=== PATIENT | female | born 1995 | race Caucasian/White ===

== ENCOUNTER 2020-03-28 13:06 | Emergency (ER) | payer SELFPAY ==
[2020-03-28 13:18] VITALS: BP 126/83; PULSE 78; RESP 16; TEMP 36.9; O2SAT 99
--- NOTE | 2020-03-28 18:27 | ED.GENADUL_ITS ---
Discharge Plan Disposition Patient Disposition: HOME Condition: Stable Discharge Details Chief Complaint: Nausea/Vomit/Diar Clinical Impression: Nausea, vomiting, and diarrhea Primary Care Provider: Britany Lozada ED Provider: Miguelina Pruett Home Meds and New Rx's Prescriptions: Continued ferrous sulfate 325 MG tablet 325 mg PO QD Qty: 30 RF: 3 acetaminophen [Tylenol] 325 MG tablet 650 mg PO Q4H PRN PRNRF: 0 ibuprofen 600 MG tablet 600 mg PO Q6H PRN PRNRF: 0 Nexplanon 68 MG implant 68 mg SQ DIRECTED RF: 0 Discharge Instructions Additional Instructions: Drink plenty of fluids. Rest activities as tolerated. Follow-up with women's wellness as discussed for reevaluation of your control. For any persistence or return of symptoms not associated with the first few days of your menstrual cycle Please have reevaluation sooner if needed for any change, worsening or alarming symptoms. Stand Alone Forms: Work Release Referrals: [facility] [Provider Group] Discharge Data Discharge Date/Time-TO BE ENTERED AT DEPARTURE: 03/28/20 14:11 Medical Decision Making This is a pleasant 24-year-old patient in no apparent distress presenting to the emergency room asymptomatic after describing nausea vomiting and diarrhea which occurred yesterday, through the night and resolved at approximately 10:00 this morning. Patient does report a pattern similar to this which is been noted over the last year on her first 1 to 2 days of her menstrual cycle. Patient is currently on the Nexplanon implant. Patient reports that she will have months in which she does not menstruate however she does report when having heavy periods this constellation of nausea vomiting and diarrhea. Patient reports is very typical of the pattern she has noted over the last year. Patient does intend to speak with women's wellness about this but has not thus far spoken with them. Patient has missed work for this reason when work falls on the day of her first few days of her menstrual cycle. Patient was due to work this morning at [employer] but did not feel well enough and still had some mild symptoms this morning and was up all night with nausea and vomiting as well as diarrhea. Patient reports she feels significantly better at this time. Denies any weakness or fatigue. Does not feel as if she is dehydrated, has been urinating without difficulty. Patient reports vaginal bleeding currently is heavy however this is typical again of her pattern. Patient does take iron replacement supplements daily which she is compliant with. We did discuss the need for testing which she consents to today. I recommended a CBC her history of anemia however patient would prefer to defer this to her PCP or women's wellness as she does not feel she is weak or fatigued at this time. Patient has no clinical evidence of anemia at this time based on physical exam and vital signs. Denies any chest pain, shortness of breath, increase in respiratory effort or fatigue. Patient's vital signs are reviewed and are stable. Patient is simply requesting a return to work note today so she may work tomorrow. testing is negative We discussed need for woman's wellness evaluation. Patient provided a referral to women's wellness and was placed on the follow-up list for women's wellness for her complaints. Patient agrees with plan to follow-up with women's wellness. The patient was stable and requested discharge. Prior to discharge, my usual and customary return precautions were reviewed with the patient - this included follow-up instructions and reasons to return to the Emergency Department if conditions worsens, does not improve as expected, or other new concerns arise. HPI General Date/Time Provider Initiated Documentation: 03/28/20 13:11 . HPI Narrative: This is a 24-year-old patient presenting the emergency room complaining of nausea vomiting and diarrhea which began last night. Patient reports symptoms entirely resolved at approximately 10:00 this morning. She has had no persistent nausea vomiting or diarrhea. Patient denies any abdominal pain. Denies back pain. Denies fever, chills, chest pain, difficulty breathing shortness of breath or wheezing. Patient denies any abdominal distention. Aquiles rodríguez reports bowel movements have improved. Patient denies any dysuria, urgency or frequency. Patient does report she is currently menstruating. Patient does describe this as a pattern of nausea vomiting and diarrhea which she has noted over the last year which occurs on her first day of menstruation. Patient reports lasting sometimes 1 to 2 days typically worse at night. Patient reports she is currently on the Nexplanon implant and reports this was placed 2 years ago but does report in the last year she when menstruating will have onset of nausea vomiting and diarrhea for the first 1 to 2 days of her menstrual cycle. This is very typical of the pattern she has noticed over the last year and does intend to speak with women's wellness about this but has not yet had this conversation or been evaluated. Patient reports her bleeding is heavy in the first few days then improves. Patient does report a history of anemia but does report she currently takes iron supplementation daily and has been compliant with this. Patient denies any shortness of breath, weakness or fatigue. Reports she is otherwise feeling well. Reports at this time she is asymptomatic and requires a note to return to work as she had to call out of work this morning as she had several episodes of vomiting and diarrhea overnight. Patient is simply requesting a work note to return to work as her employer is concerned about Covid. Related Data Home Medications Medication Instructions Recorded Confirmed ferrous sulfate 325 mg PO QD #30 tab-cap 12/23/17 03/28/20 Nexplanon 68 mg SQ DIRECTED implant 03/19/18 03/28/20 acetaminophen [Tylenol] 650 mg PO Q4H PRN PRN tab 03/19/18 03/28/20 ibuprofen 600 mg PO Q6H PRN PRN tab 03/19/18 03/28/20 Previous Rx's Medication Instructions Recorded ferrous sulfate 325 mg PO QD #30 tab-cap 12/23/17 Nexplanon 68 mg SQ DIRECTED implant 03/19/18 acetaminophen [Tylenol] 650 mg PO Q4H PRN PRN tab 03/19/18 ibuprofen 600 mg PO Q6H PRN PRN tab 03/19/18 Allergies Allergy/AdvReac Type Severity Reaction Status Date / Time hydrocodone [From Vicodin] AdvReac Mild Nausea Unverified 03/28/20 13:24 bee stings Allergy Anaphylaxsi Uncoded 03/28/20 13:24 s General Stated Complaint: Nausea/Vomit/Diar MARU: 3 Review of Systems All systems reviewed & are unremarkable except as noted in HPI and below PFSH Medical History Back pain (normal spontaneous vaginal delivery) (Acute) Family History Grandfather Alcohol abuse Myocardial infarction Grandfather Alcohol abuse Father Essential hypertension Grandfather No problems noted. Maternal Uncle No problems noted. Maternal Uncle Myocardial infarction Social History Smoking/Tobacco Use Status: Current every day Alcohol Intake: never Drug use: Daily Substance use type: marijuana Adopted: No Foster care: No Number of Children: 2 Do you feel safe at home: Yes Do you feel safe in your relationship?: Yes History History 2 Para Hx # Term Pregnancies 2 Multiple births Hx # Pregnancies Ectopic pregnancies AB induced Hx Number of Living Children AB spontaneous Exam Narrative Exam Narrative: CONST: Healthy appearing patient, in no acute distress. Well hydrated. Alert and oriented. HENMT: Head nomocephalic, normal to inspection. Atraumatic. Hearing grossly normal. EYES: General normal appearance. Alignment normal. Eyelids normal. Conjunctiva normal. Sclera normal. NECK: Normal visual inspection. FROM. No lymphadenopathy. Trachea midline. No Midline tenderness. CHEST: Normal insepection of the chest. RESP: Normal respiratory effort. Speaking full sentences. No cough. No wheezing. No retractions. Clear to auscaltation. Breath sound equal and present bilaterally. CARDIO: No JVD. Normal PMI. Regular Rate. Regular Rhythm. Normal peripheral pulses. GI: Normal inspection of abdomen. No distension. Soft. Nontender. Bowel sounds present in all 4 quadrants. No rebound. No gaurding. MUSCULOSKELETAL: Normal Gait. FROM of all extremities. Distal neurovascularly intact. Sensation intact distally. Back: CVA tenderness noted bilaterally SKIN: Normal. Dry. No rashes. NEURO: Alert and awake. Speech clear. PSYCH: Normal affect. Cooperative. Course Vital Signs Vital signs: Vital Signs Temperature 36.9 C 03/28/20 13:18 Pulse 78 03/28/20 13:18 Respiratory Rate 16 03/28/20 13:18 Blood Pressure 126/83 03/28/20 13:18 Pulse Oximetry 99 03/28/20 13:18 Temperature 36.9 C 03/28/20 13:18 Temperature Source Temporal Artery Scan 03/28/20 13:18 Pulse 78 03/28/20 13:18 Respiratory Rate 16 03/28/20 13:18 Respiratory Effort Non-Labored 03/28/20 13:22 Blood Pressure 126/83 03/28/20 13:18 Blood Pressure Position Sitting 03/28/20 13:18 Pulse Oximetry 99 03/28/20 13:18 Oxygen Delivery Method Room Air 03/28/20 13:18 Oxygen Flow Rate 0 03/28/20 13:18 Pain Level 1 03/28/20 13:18 Lab/Test Results Lab/Test Results: POC- Test(urine) Negative
== END 2020-03-28 14:11 | disposition home or self-care (01) ==
PROVIDERS: Emergency Provider Physician Assistant; PCP Nurse Practitioner Family
DX: R11.2 Nausea with vomiting, unspecified (principal); R19.7 Diarrhea, unspecified; Z02.79 Encounter for issue of other medical certificate
CPT/HCPCS: 81025; 99282; 99283

== ENCOUNTER 2020-07-23 21:52 | Emergency (ER) | payer SELFPAY ==
--- NOTE | 2020-07-23 22:00 | DI.RAD_ITS ---
EXAM: XR ANKLE RT COMPLETE CLINICAL HISTORY: R/O fracture. TECHNIQUE: 2D digital imaging was performed. COMPARISON: CR RIGHT ANKLE COMPLETE from 10/05/2016 FINDINGS: BONES: No acute fracture is present. No bony destructive lesion is seen. Screws are again noted in th e malleoli. There is are smoothly marginated bony densities beneath the medial malleolus. There is periarticular spurring. JOINTS:The ankle mortise is normally aligned. SOFT TISSUE: Normal. IMPRESSION: Postsurgical and degenerative changes. No acute abnormality. DATA REPOSITORY: RADIATION DOSE DELIVERED:
[2020-07-23 22:01] VITALS: BP 124/63; PULSE 100; RESP 18; TEMP 37; O2SAT 100
--- NOTE | 2020-07-23 22:09 | W.ED.GENAD ---
Discharge Plan Disposition Patient Disposition: HOME Condition: Stable Discharge Details Clinical Impression: Right ankle sprain Primary Care Provider: None,None ED Provider: Clarisa Gross Home Meds and New Rx's Prescriptions: No Action Nexplanon 68 MG implant 68 mg SQ DIRECTED RF: 0 Discharge Instructions Instructions: Ankle Sprain (ED) Additional Instructions: Follow up with primary care provider in 3-5 days. Return to ED sooner if any worsening or concerns. Increase oral fluids. Please take Tylenol or Ibuprofen with food every 4-6 hours as needed for pain and swelling. Toe-touch weightbearing advance as tolerated. Rest ice compression elevation. Stand Alone Forms: Work Release Medical Decision Making 24-year-old female presents to the ED with a chief complaint of right ankle pain. Approximately 1 hour prior to arrival patient fell down approximately 3 steps. She landed on her right ankle and has been unable to bear weight since. She does report previous surgery on the ankle and has pins and screws in the ankle. She does have tenderness over the lateral and medial malleolus. No obvious deformity. Intact dorsal pedal pulses. Cap refills less than 2 seconds. She did not take any medications prior to arrival. She has no other injuries noted denies any loss of consciousness, hitting her head no neck or back pain. Imaging protocol: XR Right ankle. Views: 3 or more views. COMPARISON: CR RIGHT ANKLE COMPLETE 10/05/2016 9:13 AM FINDINGS: Bones/joints: Stable screws in the distal tibia and fibula. No acute fractures. Soft tissues: Normal. IMPRESSION: No acute finding. Thank you for allowing us to participate in the care of your patient. Dictated and Authenticated by: Albert Jim MD 07/23/2020 10:40 PM Eastern Time ([place] & [place]) Patient placed in a air stirrup splint and given crutches. Discussed toe-touch weightbearing and advance as tolerated, verbalizes understanding. Patient was given ibuprofen 800 mg in department. Discussed rest, ice, compression, elevation. HPI General Mode of arrival: wheelchair. Date/Time Provider Initiated Documentation: 07/23/20 21:54. Limitations to Documentation: no limitations. Information obtained by: patient. HPI Narrative: 24-year-old female presents to the ED with a chief complaint of right ankle pain. Approximately 1 hour prior to arrival patient fell down approximately 3 steps. She landed on her right ankle and has been unable to bear weight since. She does report previous surgery on the ankle and has pins and screws in the ankle. She does have tenderness over the lateral and medial malleolus. No obvious deformity. Intact dorsal pedal pulses. Cap refills less than 2 seconds. She did not take any medications prior to arrival. She has no other injuries noted denies any loss of consciousness, hitting her head no neck or back pain. Related Data Home Medications Medication Instructions Recorded Confirmed Nexplanon 68 mg SQ DIRECTED implant 03/19/18 07/23/20 Previous Rx's Medication Instructions Recorded Nexplanon 68 mg SQ DIRECTED implant 03/19/18 Allergies Allergy/AdvReac Type Severity Reaction Status Date / Time hydrocodone [From Vicodin] AdvReac Mild Nausea Unverified 07/23/20 22:05 bee stings Allergy Anaphylaxsi Uncoded 07/23/20 22:05 s General Stated Complaint: Orthopedic MARU: 3 Review of Systems Narrative: Constitutional: Negative for weight loss, alert and oriented, well groomed, normal body habitus, appears comfortable. HEENT: Denies trauma, headaches, blurry vision, nasal discharge, sore throat, trouble swallowing. Chest: Denies chest pain, palpitations, irregular rhythm, hypertension. Respiratory: Denies Shortness of breath, cough, hemoptysis. GI: Denies abdominal pain, nausea, vomiting, diarrhea, constipation. : Denies dysuria, hematuria, flank pain, rectal bleeding. Musculoskeletal: Right ankle pain and swelling. Neuro: Denies dizziness, blurry vision, weakness, syncope, headache or facial numbness. Hematologic: Denies easy bruising, intolerance to heat or cold, hair loss. [facility] Medical History (Updated 07/23/20 @ 22:55 by Clarisa Gross) Back pain (normal spontaneous vaginal delivery) Family History Grandfather Alcohol abuse Myocardial infarction Grandfather Alcohol abuse Father Essential hypertension Grandfather No problems noted. Maternal Uncle No problems noted. Maternal Uncle Myocardial infarction Social History Smoking/Tobacco Use Status: Current every day Alcohol Intake: never Drug use: Daily Substance use type: marijuana Adopted: No Foster care: No Number of Children: 2 Do you feel safe at home: Yes Do you feel safe in your relationship?: Yes History History 2 Para Hx # Term Pregnancies 2 Multiple births Hx # Pregnancies Ectopic pregnancies AB induced Hx Number of Living Children AB spontaneous Exam Narrative Exam Narrative: Constitutional: Alert and oriented x3. Appears stated age. Normal body habitus. Head: Normocephalic, no trauma. Eyes: Pupils PERRLA, Red reflex noted, EOM's intact. Eyelids symmetrical without lesions, discharge, or swelling. ENT: Bilateral TM's WNL, External ear normal to inspection, no mastoid TTP, swelling, or erythema, Nasal turbinates WNL, no nasal discharge. Normal dentition, Posterior pharynx WNL, no exudate. Chest: RRR, Normal S1, S2, distal pulses intact. Resp: Lungs clear to auscultation bilaterally, no wheezes, rales, or rhonchi. Musculoskeletal: Right ankle tenderness. Tenderness noted to the lateral and medial malleolus. Dorsal pedal pulses intact capillary refill less than 2 seconds. Skin: No suspicious rashes or lesions. Capillary refill less than 2 sec. Neurologic: Cranial nerves II-XII intact. Alert and oriented x 3. DTR's intact. Hematologic/Lymphatic: No ecchymosis, no lymphadenopathy. Course Vital Signs Vital signs: Vital Signs Temperature 37.0 C 07/23/20 22:01 Pulse 100 H 07/23/20 22:01 Respiratory Rate 18 07/23/20 22:01 Blood Pressure 124/63 07/23/20 22:01 Pulse Oximetry 100 07/23/20 22:01 Temperature 37.0 C 07/23/20 22:01 Temperature Source Tympanic 07/23/20 22:01 Pulse 100 H 07/23/20 22:01 Respiratory Rate 18 07/23/20 22:01 Blood Pressure 124/63 07/23/20 22:01 Blood Pressure Position Sitting 07/23/20 22:01 Pulse Oximetry 100 07/23/20 22:01 Oxygen Delivery Method Room Air 07/23/20 22:01 Oxygen Flow Rate 0 07/23/20 22: Pain Level 1 07/23/20 22: Comment 07/23/20 22:01
[2020-07-23] MEDS: Ibuprofen 800 MG TAB PO (22:12)
--- NOTE | 2020-07-23 22:40 | DI.VRAD_ITS ---
PROCEDURE INFORMATION: Exam: XR Right Ankle Exam date and time: 07/23/2020 10:28 PM Age: 24 years old Clinical indication: Pain; Ankle; Right; Prior surgery; Surgery date: 6+ months TECHNIQUE: Imaging protocol: XR Right ankle. Views: 3 or more views. COMPARISON: CR RIGHT ANKLE COMPLETE 10/05/2016 9:13 AM FINDINGS: Bones/joints: Stable screws in the distal tibia and fibula. No acute fractures. Soft tissues: Normal. IMPRESSION: No acute finding. Dictated and Authenticated by: Albert Jim MD. Ordering:JACKIE Mckenna MD
== END 2020-07-23 23:30 | disposition home or self-care (01) ==
PROVIDERS: Emergency Provider Registered Nurse Emergency
DX: S93.491A Sprain of other ligament of right ankle, initial encounter (principal); W10.8XXA Fall (on) (from) other stairs and steps, initial encounter; X50.9XXA Other and unspecified overexertion or strenuous movements or postures, initial encounter
CPT/HCPCS: 29515; 99283; 73610; E0114

== ENCOUNTER 2021-12-22 10:31 | Emergency (ER) | payer MEDICAID, SELFPAY ==
[2021-12-22 10:35] VITALS: BP 158/81; PULSE 114; RESP 14; TEMP 36.7; O2SAT 98
--- NOTE | 2021-12-22 10:45 | DI.CT_ITS ---
Exam(s) CT LUMBAR SPINE WO EXAM: CT LUMBAR SPINE WO CLINICAL HISTORY: fall 5 days ago, tender lower lumbar midline TECHNIQUE: COMPARISON: No exams were available for comparison FINDINGS: CT examination lumbar spine was performed utilizing multi slice acquisition and multiplanar reconstru ction. Visualized portions of kidneys and aorta appear intact. No adenopathy identified. There is no evidence of fracture. No spondylolysis or spondylolisthesis. The SI joints appear intact. No gr oss disc herniation by CT criteria. IMPRESSION: No evidence of acute injury. RADIATION DOSE DELIVERED: 697.9mGy.cm Total DLP !Error CTDIvol RADIATION OPTIMIZATION: All CT scans at this facility use at least one of these dose optimization te chniques: automated exposure control; mA and/or kV adjustment per patient size (includes targeted exa ms where dose is matched to clinical indication); or iterative reconstruction.
--- NOTE | 2021-12-22 10:55 | ED.GENADUL_ITS ---
Discharge Plan Disposition Patient Disposition: HOME Condition: Improving Discharge Details Clinical Impression: Back strain Primary Care Provider: Fabby Edward ED Provider: Carroll Velasco Home Meds and New Rx's Prescriptions: New lidocaine [Lidoderm] 5 % adhesive patch,medicated 1 patch topical DAILY PRN (Reason: back pain) Qty: 3 0RF Rx Instructions: leave on most painful area for up to 12 hrs cyclobenzaprine 5 mg tablet 5 mg PO BID PRN (Reason: muscle spasm) Qty: 6 0RF Continued melatonin 10 mg capsule 10 mg PO HS PRN0RF norethindrone (contraceptive) [Ortho Micronor] 0.35 mg tablet 0.35 mg PO DAILY Qty: 84 4RF Discharge Instructions Instructions: Low Back Strain (ED) Additional Instructions: Continue with ibuprofen and acetaminophen as needed for pain and inflammation, ice and/or heat as needed. Please return to the emergency department if you develop any neurologic symptomatology such as numbness weakness change in bowel or bladder habit or change in sensation. Stand Alone Forms: Work Release Medical Decision Making 26-year-old female presents after mechanical fall, persistent lumbar pain over the past several days, no bowel or bladder incontinence, no saddle anesthesia, ambulatory without assistance, does have midline lumbar tenderness on examination without ecchymosis crepitus or deformity. Tachycardia likely related to pain; likely soft tissue contusion versus bony contusion versus less spinal fracture versus unlikely spinal cord compression. Given midline tenderness will obtain CT lumbar spine, analgesia anti-inflammatory muscle relaxant. Likely home with close follow-up 12: 09 feeling much better after medication. No acute distress. No evidence of lumbar fracture. Neurologically intact. HPI General Date/Time Provider Initiated Documentation: 12/22/21 10:40 . HPI Narrative: 26-year-old female presents several days after mechanical slip and fall on ice/snow, fell on her left side, no head injury no loss of conscious, endorses lumbar back pain continues over the past several days. Denies bowel or bladder incontinence denies change in sensation or lower extremities or perineal region. Related Data Home Medications Medication Instructions Recorded Confirmed melatonin 10 mg capsule 10 mg PO HS PRN 05/22/21 12/22/21 norethindrone (contraceptive) 0.35 0.35 mg PO DAILY #84 tab 05/22/21 12/22/21 mg tablet (Ortho Micronor) cyclobenzaprine 5 mg tablet 5 mg PO BID PRN #6 tab 12/22/21 lidocaine 5 % topical patch 1 patch TOPICAL DAILY PRN #3 ea 12/22/21 (Lidoderm) Previous Rx's Medication Instructions Recorded norethindrone (contraceptive) 0.35 0.35 mg PO DAILY #84 tab 05/22/21 mg tablet (Ortho Micronor) cyclobenzaprine 5 mg tablet 5 mg PO BID PRN #6 tab 12/22/21 lidocaine 5 % topical patch 1 patch TOPICAL DAILY PRN #3 ea 12/22/21 (Lidoderm) Allergies Allergy/AdvReac Type Severity Reaction Status Date / Time hydrocodone [From Vicodin] AdvReac Mild Nausea Unverified 12/22/21 10:48 bee stings Allergy Anaphylaxsi Uncoded 12/22/21 10:48 s General Stated Complaint: Nk/Back Pain MARU: 3 Review of Systems Narrative: Review of Systems Constitutional: negative Eyes: negative ENT: negative Cardiovascular: negative Respiratory: negative Gastrointestinal: negative : negative Musculoskeletal: Back pain Skin: negative Neurologic: negative Psych: negative PFSH All Active Problems (Updated 12/22/21 @ 12:10 by Carroll Velasco MD) Back strain (Acute) Encounter for removal of subdermal contraceptive implant (Acute) Initiation of oral contraception (Acute) Medical History (Updated 12/22/21 @ 12:10 by Carroll Velasco MD) Back pain (normal spontaneous vaginal delivery) Family History (Updated 12/21/21 @ 10:34 by Sadia Lund) Grandfather Alcohol abuse Myocardial infarction Grandfather Alcohol abuse Father Essential hypertension Hypertension Maternal Uncle Myocardial infarction Mother Alcohol abuse Social History (Updated 12/21/21 @ 10:33 by Sadia Lund) Smoking/Tobacco Use Status: Current every day Tobacco Type: cigarettes Tobacco: How many years used: 10 Quit status: not considering quitting Smoking risk assessment performed?: Yes Alcohol Intake: current Alcohol Intake frequency: a few times a month Drug use: Daily Substance use type: marijuana Adopted: No Caregiver/Support person: No Foster care: No Household members: significant other and children Housing: house Number of Children: 2 Communication Needs: Corrective Lenses Education Level: high school Do you need help understanding health information?: Rarely current occupation: Pneumatic Tool Operator Pets and animals: Yes Pets and animals: cat(s), dog(s) and horse(s) Sexually active: Yes Do you think of yourself as: bisexual Current gender identity: female What is your relationship status?: living with partner How often do you talk on the phone with friends or family?: once per week How often do you get together with friends or relatives?: three or more times per week Do you belong to any clubs or organized social groups?: no Panel score (0-1 are the most socially isolated patients): 2 What type of physical activity do you participate in: walking Duration: 60-90 minutes/day Frequency: daily Jena/Congregation: None Special jena needs: No Seatbelt use: sometimes Helmet use: No Drive intox or ride w/intox ups driver: No Do you feel safe at home: Yes Do you feel safe in your relationship?: Yes History History 2 Para Hx # Term Pregnancies 2 Multiple births Hx # Pregnancies Ectopic pregnancies AB induced Hx Number of Living Children AB spontaneous Exam Narrative Exam Narrative: Physical Examination General: alert, awake, cooperative, resting comfortably, no acute distress HEENT: normocephalic, atraumatic; PERRL, EOM intact, conjunctiva normal; no nasal discharge; moist mucous membranes, oral and pharyngeal mucosa normal, tolerating secretions Neck: supple, trachea midline; full ROM Chest: normal to inspection Respiratory: normal respiratory effort, speaking in full sentences, clear to auscultation, no wheezing, rales or rhonchi Cardiac: regular rate, regular rhythm, S1S2 intact, no murmurs rubs or gallops GI: abdomen soft, non-tender, non-distended; no palpable mass or hepatosplenomegaly Back: Midline lower lumbar tenderness, no crepitus or deformity, does have paraspinal lower lumbar tenderness as well, no ecchymosis Skin: no lesions, rashes or trauma appreciated Neuro: AAOx3, normal speech, moving all extremities; 5 out of 5 strength bilateral lower extremities, sensation bilateral lower extremities intact, ambulatory without assistance Extremities: Full range of motion no deformity Psych: Appropriate mood and affect Course Vital Signs Vital signs: Vital Signs Temperature 36.7 C 12/22/21 10:35 Pulse 114 H 12/22/21 10:35 Respiratory Rate 14 12/22/21 10:35 Blood Pressure 158/81 H 12/22/21 10:35 Pulse Oximetry 98 12/22/21 10:35 Temperature 36.7 C 12/22/21 10:35 Temperature Source Temporal Artery Scan 12/22/21 10:35 Pulse 114 H 12/22/21 10:35 Respiratory Rate 14 12/22/21 10:35 Respiratory Effort Non-Labored 12/22/21 10:42 Blood Pressure 158/81 H 12/22/21 10:35 Blood Pressure Position Sitting 12/22/21 10:35 Pulse Oximetry 98 12/22/21 10:35 Oxygen Delivery Method Room Air 12/22/21 10:35 Oxygen Flow Rate 0 12/22/21 10:35 Pain Level 8 12/22/21 10:35
[2021-12-22] MEDS: LORazepam 0.5 MG TAB PO (11:13)
[2021-12-22] MEDS: Dexamethasone 10 MG/ML VIAL IM (11:13)
[2021-12-22] MEDS: Lidocaine 5% Patch 1 PATCH TP (11:14)
== END 2021-12-22 12:28 | disposition home or self-care (01) ==
PROVIDERS: Emergency Provider Emergency Medicine; PCP Nurse Practitioner
DX: S39.012A Strain of muscle, fascia and tendon of lower back, initial encounter (principal); W00.0XXA Fall on same level due to ice and snow, initial encounter
CPT/HCPCS: 81025; 96372; 99284; 72131; 99283; J1100

== ENCOUNTER 2022-06-14 08:28 | Emergency (ER) | payer MEDICAID, SELFPAY ==
[2022-06-14 08:39] VITALS: BP 132/72; PULSE 92; RESP 18; TEMP 36.7; O2SAT 98
--- NOTE | 2022-06-14 09:47 | W.ED.GENAD ---
Discharge Plan Disposition Patient Disposition: HOME Condition: Stable Discharge Details Clinical Impression: Sebaceous cyst Primary Care Provider: Fabby Edward ED Provider: Harjeet Rosales Home Meds and New Rx's Prescriptions: Continued melatonin 10 mg capsule 10 mg PO HS PRN norethindrone (contraceptive) [Ortho Micronor] 0.35 mg tablet 0.35 mg PO DAILY Qty: 84 4RF Discharge Instructions Instructions: Cyst (ED) Additional Instructions: Cyst was drained without difficulty. Apply warm moist compresses every 2 hours for 20 minutes. Change dressing daily. Please watch for new or worsening symptoms and return to the ER for any concerns. Referral to our surgical team provided if symptoms are to persist or return. Referrals: Rob Zafar MD [ [facility] STAFF PHYSICIAN] - Medical Decision Making 26-year-old female reports that she has had a cyst on her back for nearly 5 years, bumped it last week and now it is becoming larger and more painful. She questions if it needs to be drained. Clinically she appears well, nontoxic. Plan is to I&D the sebaceous cyst, no clear indication for antibiotic therapy. I&D performed without difficulty. Antibiotic dressing placed. Standard discharge and return precautions were provided. Patient understands, is agreeable to this plan, and has no additional questions or concerns upon discharge. This documentation was generated using [employer] dictation system, please disregard any oddities of phrase or misspellings. Medical Records Medical records reviewed: Yes I reviewed the patient's medical records. HPI General Mode of arrival: ambulatory. Date/Time Provider Initiated Documentation: 06/14/22 08:53. Limitations to Documentation: no limitations. Information obtained by: patient. History of Present Illness 26 year old F presents to the emergency department with the chief complaint of back cyst, described as moderate, with intensity rated at 4. Quality is described as aching, and is localized to the back. Patient reports no radiation. Patient started experiencing this week(s) (chronic 5 years, worse x 1 week) and it has been other (worsening). No relieving factors improve symptom(s), No exacerbating factors reported . Patient notes no other symptoms.. Patient did receive the following treatments prior to arrival, none Related Data Home Medications Medication Instructions Recorded Confirmed melatonin 10 mg capsule 10 mg PO HS PRN 08/16/21 09/08/22 norethindrone (contraceptive) 0.35 0.35 mg PO DAILY #84 tabs 05/22/21 06/14/22 mg tablet (Ortho Micronor) Previous Rx's Medication Instructions Recorded norethindrone (contraceptive) 0.35 0.35 mg PO DAILY #84 tabs 05/22/21 mg tablet (Ortho Micronor) Allergies Allergy/AdvReac Type Severity Reaction Status Date / Time honey Allergy Unverified 06/14/22 08:43 hydrocodone [From Vicodin] AdvReac Mild Nausea Unverified 12/22/21 10:48 bee stings Allergy Anaphylaxsi Uncoded 12/22/21 10:48 s General Stated Complaint: Cellulitis MARU: 4 Review of Systems Constitutional Constitutional: Denies fever(s) Musculoskeletal Musculoskeletal: Denies numbness and Denies tingling Integumentary/Breasts Skin/Breast: Denies rash Neurologic Neurologic: Denies numbness and Denies tingling PFSH All Active Problems (Updated 06/14/22 @ 09:55 by DIANA Pitt) Sebaceous cyst (Acute) Encounter for removal of subdermal contraceptive implant (Acute) Initiation of oral contraception (Acute) Medical History Back pain (normal spontaneous vaginal delivery) Family History Grandfather Alcohol abuse Myocardial infarction Grandfather Alcohol abuse Father Essential hypertension Hypertension Maternal Uncle Myocardial infarction Mother Alcohol abuse Social History Smoking/Tobacco Use Status: Current every day Tobacco Type: cigarettes Tobacco: How many years used: 10 Quit status: not considering quitting Smoking risk assessment performed?: Yes Alcohol Intake: current Alcohol Intake frequency: a few times a month Drug use: Daily Substance use type: marijuana Adopted: No Caregiver/Support person: No Foster care: No Household members: significant other and children Housing: house Number of Children: 2 Communication Needs: Corrective Lenses Education Level: high school Do you need help understanding health information?: Rarely current occupation: [employer] Manager Pets and animals: Yes Pets and animals: cat(s), dog(s) and horse(s) Sexually active: Yes Do you think of yourself as: bisexual Current gender identity: female What is your relationship status?: living with partner How often do you talk on the phone with friends or family?: once per week How often do you get together with friends or relatives?: three or more times per week Do you belong to any clubs or organized social groups?: no Panel score (0-1 are the most socially isolated patients): 2 What type of physical activity do you participate in: walking Duration: 60-90 minutes/day Frequency: daily Jena/Confucianism: None Special jena needs: No Seatbelt use: sometimes Helmet use: No Drive intox or ride w/intox tanker driver: No Do you feel safe at home: Yes Do you feel safe in your relationship?: Yes History History 2 Para Hx # Term Pregnancies 2 Multiple births Hx # Pregnancies Ectopic pregnancies AB induced Hx Number of Living Children AB spontaneous Exam Const General: cooperative, healthy appearing, comfortable and no acute distress Orientation: alert and awake HENMT Head: normal to inspection, normocephalic and atraumatic Eyes Conjunctivae: conjunctivae normal Neck Neck: normal visual inspection, trachea midline and supple Resp Effort & Inspection: normal respiratory effort and able to speak in complete sentences Back/Spine/Pelvis Back: back tenderness Back/spine/pelvis image: 1. Appears to be an inflamed sebaceous cyst, erythema, warmth, tenderness, no lymphangitic streaking. There is induration with minimal fluctuance. Skin General skin exam: no rashes or lesions noted (Other than as above) Neuro General: patient alert, patient awake, moves all extremities and no focal motor deficits Sensory Exam: no sensory deficits noted Psych Appearance: grossly normal Mental Status: mental status grossly normal Course Vital Signs Vital signs: Vital Signs Temperature 36.7 C 06/14/22 08:39 Pulse 92 H 06/14/22 08:39 Respiratory Rate 18 06/14/22 08:39 Blood Pressure 132/72 06/14/22 08:39 Pulse Oximetry 98 06/14/22 08:39 Temperature 36.7 C 06/14/22 08:39 Temperature Source Temporal Artery Scan 06/14/22 08:39 Pulse 92 H 06/14/22 08:39 Respiratory Rate 18 06/14/22 08:39 Blood Pressure 132/72 06/14/22 08:39 Blood Pressure Position Sitting 06/14/22 08:39 Pulse Oximetry 98 06/14/22 08:39 Oxygen Delivery Method Room Air 06/14/22 08:39 Oxygen Flow Rate 0 06/14/22 08:39 Pain Level 8 06/14/22 08:39 Procedures Abscess I/D Site: Back Local Anesthetic: Lidocaine 1% and With Epi Amount of anesthesia used (mL): 4 Technique: Incised with #11 Blade Amount of fluid expressed (mL): 3 Irrigation: No Packing used?: None Complications: Pain and Bleeding
[2022-06-14] MEDS: Bacitracin 1 PACKET (10:02)
[2022-06-14] MEDS: Lidocaine 1% Multi-Dose W/EPI 1/100,000 50 ML VIAL (10:03)
[2022-06-14 10:04] VITALS: BP 132/72; PULSE 92; RESP 18; TEMP 36.7; O2SAT 98
== END 2022-06-14 10:02 | disposition home or self-care (01) ==
PROVIDERS: Emergency Provider Physician Assistant; PCP Nurse Practitioner
DX: L72.3 Sebaceous cyst (principal); F17.210 Nicotine dependence, cigarettes, uncomplicated
CPT/HCPCS: 10060; 99281; 99282

== ENCOUNTER 2022-08-14 13:39 | Outpatient (REF) | payer MEDICAID, SELFPAY ==
--- NOTE | 2022-08-14 13:30 | PAPFT_PTH ---
PATIENT: Lm Fish LOC: [facility] U#:[id number] AGE/SX: 27/F ROOM: RE08/14/[address]: Deya Srinivasan : 1995 BED: DIS: 08/14/2022 SPEC #: [id number] RECD: 08/15/22 18:46 STATUS: JEANNE REJasmine #: [id number] FRANCIE: 08/14/22 13:[address]: Deya Srinivasan [facility] Cytology RECD BY: Marimar Spain ENTERED: 08/15/22 18:47 SP TYPE: PAPFT BARTOLOME DR: Fabby Edward APRN Tissues: 1 - CX/ENDOCX FOR PAP SMEARS Procedures: PAP THIN PREP/UVM Screening HPV DNA PROBE Comments:
== END 2022-08-14 13:40 | disposition home or self-care (01) ==
LOC: LBN 13:39
PROVIDERS: PCP Nurse Practitioner; Visit Provider Obstetrics & Gynecology Gynecology
DX: Z12.4 Encounter for screening for malignant neoplasm of cervix (principal); Z11.51 Encounter for screening for human papillomavirus (HPV)
CPT/HCPCS: 88142; 87624

== ENCOUNTER 2025-06-08 10:30 | Outpatient (CLI) | payer MEDICAID, SELFPAY ==
--- NOTE | 2025-06-08 06:30 | DI.US_ITS ---
Exam(s) US OB 1ST TRIMESTER TWINS EXAM: US OB 1ST TRIMESTER TWINS CLINICAL HISTORY: DATING us,z34.90. TECHNIQUE: Transabdominal obstetrical ultrasound performed. COMPARISON: US POCUS EXAM from 10/29/2024 US POCUS EXAM from 11/13/2024 FINDINGS: Number of fetuses: Dichorionic diamniotic twins FINDINGS: Fetus A, toward maternal left, closer to cervix. heart rate: 154 bpm. Placental grade: 0 Placental location: Posterior. No evidence of previa. Placental edge measures 3.7 cm from the internal os. BIOMETRIC DATA: BPD: 29 mm, 15+ 1 weeks HC: 108 mm, 15+ 1 weeks AC: 92 mm, 15+ 2 weeks FL: 15 mm, 14+ 4 weeks Ultrasound gestational age: 15 weeks 0 days Estimated weight: 111 Grams. This corresponds to 94 percentile. Estimated date of delivery (current ultrasound): 30 November 2025 Estimated date of delivery (previous ultrasound): 07 December 2025 Cervical length 6.2 cm. FINDINGS: Fetus B. toward maternal right, closer to fundus. heart rate: 157 bpm. Placental grade: 0 Placental location: Posterior. The placenta lies measures 3.7 cm from the internal os. BIOMETRIC DATA: BPD: 28 mm, 15+ 0 weeks HC: 104 mm, 14+ 6 weeks AC: 87 mm, 15+ 0 weeks FL: 15 mm, 14+ 2 weeks Ultrasound gestational age: 14+ 6 weeks Estimated weight: 103 Grams. This corresponds to 80 percentile. Estimated date of delivery (current ultrasound): 01 December 2025 Estimated date of delivery (previous ultrasound): 07 December 2025 Rt Ovary: 4.1 x 2.5 x 1.9 Cm Lt Ovary: 3.7 x 3.2 x 1.9 cm IMPRESSION: Dichorionic diamniotic twin gestation. Fetus a is measured at 15 weeks 0 days. Fetus B is measured at 14 weeks 6 days DATA REPOSITORY:
== END 2025-06-08 10:50 ==
LOC: DI 10:30
PROVIDERS: PCP Family Medicine; Visit Provider Advanced Practice Midwife
DX: Z34.92 Encounter for supervision of normal pregnancy, unspecified, second trimester (principal); Z3A.15 15 weeks gestation of pregnancy
CPT/HCPCS: 76801; 76802

== ENCOUNTER 2025-06-22 03:44 | Outpatient (CLI) | payer MEDICAID, SELFPAY ==
[2025-06-22 16:55] LABS: Abs Immature Grans 0.03 10^3/uL (0.0-0.06); HCT 34.4 % (36.0-46.0); HGB 11.6 g/dL (11.2-15.7); Immature Grans % 0.3 %; MCH 29.2 pg (27.0-33.0); MCHC 33.7 % (32.0-36.0); MCV 87 fL (80-95); MPV 10.0 fL (8.0-11.0); Platelet Count 228 10^3/uL (130-400); RBC 3.97 10^6/uL (3.93-5.22); RDW 13.3 % (11.7-14.6); RDW-SD 41.7 fL; WBC 11.82 10^3/uL (4.4-10.8)
[2025-06-23 14:58] LABS: Hemoglobin A1C 5.0 % (<5.7)
[2025-06-23 19:29] LABS: HIV-1/2 Ag & Ab Screen Negative (Negative)
[2025-06-23 19:32] LABS: Hepatitis C Ab w Rflx HCV PCR Negative (Negative)
[2025-06-24 10:12] LABS: Rubella IgG Ab (UVM) Positive (See Note)
[2025-06-24 13:19] LABS: Chlamydia Result Negative (Negative); GC Result Negative (Negative)
[2025-06-25 21:21] LABS: Syphilis IgG w/Reflex Nonreactive (Nonreactive)
== END 2025-06-22 03:45 | disposition home or self-care (01) ==
LOC: LBO 03:44
PROVIDERS: PCP Family Medicine; Visit Provider Advanced Practice Midwife
DX: O30.041 Twin pregnancy, dichorionic/diamniotic, first trimester (principal); Z34.91 Encounter for supervision of normal pregnancy, unspecified, first trimester
CPT/HCPCS: 36415; 81220; 81222; 81329; 86787; 86803; 86850; 86900; 86901; 87340; 87389; 87491; 87591; 83036; 85025; 86762; 86780

== ENCOUNTER 2025-06-22 14:57 | Outpatient (REF) | payer MEDICAID, SELFPAY ==
[2025-06-23 11:13] LABS: Cannabinoids THC Positive (Negative); METHADONE URINE SCREEN Negative (Negative)
[2025-06-24 12:51] LABS: Fentanyl Scr w/Rfx Confirm Negative ng/mL (<1)
== END 2025-06-22 14:58 | disposition home or self-care (01) ==
LOC: LBN 14:57
PROVIDERS: PCP Family Medicine; Visit Provider Advanced Practice Midwife
DX: Z34.91 Encounter for supervision of normal pregnancy, unspecified, first trimester (principal)
CPT/HCPCS: 80307; 80348; 87086

== ENCOUNTER 2025-08-20 09:51 | Outpatient (CLI) | payer MEDICAID, SELFPAY ==
[2025-08-20 15:53] LABS: Glucose,1 Hr (Glucola) 103 mg/dL (80-140)
== END 2025-08-20 09:52 | disposition home or self-care (01) ==
LOC: LBO 09:52
PROVIDERS: Obstetrics & Gynecology; Visit Provider Obstetrics & Gynecology
DX: Z34.93 Encounter for supervision of normal pregnancy, unspecified, third trimester (principal)
CPT/HCPCS: 36415; 82950

== ENCOUNTER → 2025-08-23 01:30 | Outpatient (CLI) | payer MEDICAID, SELFPAY ==
--- NOTE | 2025-08-23 06:15 | DI.US_ITS ---
Exam(s) US OB KAR WEIGHT TWINS EXAM: US OB KAR WEIGHT TWINS CLINICAL HISTORY: dichorionic diamniotic twin ,O30.049. TECHNIQUE: Transabdominal obstetrical ultrasound performed. COMPARISON: No exams were available for comparison FINDINGS: Number of fetuses: two. FINDINGS: Fetus A. position:Vertex. heart rate: 157 bpm. Placental grade: 2 Placental location: Posterior. No evidence of previa. BIOMETRIC DATA: BPD: 60 mm, 24+2 weeks HC: 232 mm, 25+2 weeks AC: 214 mm, 26+ 0 weeks FL: 46 mm, 25+2 weeks Ultrasound gestational age: 25+2 weeks Estimated weight: 820 Grams. This corresponds to 31 percentile. Estimated date of delivery (current ultrasound): 04 December 2025 Estimated date of delivery (previous ultrasound): 01 December 2025 Amniotic fluid index: 13.2 cm. Largest pocket of fluid measures 3.5 cm. Amount of fluid is within normal limits. FINDINGS: Fetus B. position:Vertex. heart rate: bpm. Placental grade: 2 Placental location: Fundal, right-sided no evidence of previa. BIOMETRIC DATA: BPD: 63 mm, 25+3 weeks HC: 235 mm, 25+4 weeks AC: 211 mm, 25+4 weeks FL: 47 mm, 25+4 weeks Ultrasound gestational age: 25+4 weeks Estimated weight: 826 Grams. This corresponds to 33 percentile. Estimated date of delivery (current ultrasound): December 02 Estimated date of delivery (previous ultrasound): 01 December 2025 Amniotic fluid index: 13.2 cm. Largest pocket of fluid measures 3.5 cm. Amount of fluid is within normal limits. IMPRESSION: 1. size and weight are within the normal range for both fetuses. 2. Normal KAR, 13.2 cm which is the overall measurement for both fetuses. DATA REPOSITORY:
== END ==
PROVIDERS: PCP Family Medicine; Visit Provider Obstetrics & Gynecology
DX: O30.042 Twin pregnancy, dichorionic/diamniotic, second trimester (principal)
CPT/HCPCS: 76816